=== PATIENT | male | born 1965 | race Caucasian/White ===

== ENCOUNTER 2017-10-31 12:21 | Day surgery (SDC) | payer MEDICARE, BC ==
[2017-10-30 09:33] LABS: BASOPHILS 0.2 % (0-2); EOSINOPHILS 0.8 % (0-7); HEMATOCRIT 41.6 % (42.0-54.0); HEMOGLOBIN 14.2 g/dL (13.5-17.5); IMMATURE GRANULOCYTES 0.2 % (0-5); LYMPHOCYTES 29.5 % (15-50); MCHC 34.1 g/dL (31.0-37.0); MCV 87.8 fL (80.0-100.0); MEAN PLATELET VOLUME 9.4 fL (7.4-10.4); NEUTROPHILS 62.3 % (40-80); RBC 4.74 10x6/uL (4.20-6.10); RDW 12.8 % (11.5-14.5); WBC 6.5 10x3/uL (4.8-10.8)
[2017-10-30 09:44] LABS: CALC OSMOLALITY 273 mosm/kg (275-300); CARBON DIOXIDE 23.5 mmol/L (21.0-32.0); CHLORIDE - SERUM 103 mmol/L (98-107); CREATININE - SERUM 1.1 mg/dL (0.6-1.3); GLUCOSE 79 mg/dL (74-106); POTASSIUM - SERUM 4.2 mmol/L (3.5-5.1); SODIUM 138 mmol/L (136-145); UREA NITROGEN 11 mg/dL (7-18); eGFR NON AFRICAN AMERICAN 75 mL/min (90-120)
[2017-10-30 09:50] LABS: PLATELET COUNT 248 10x3/uL (130-400)
[~2017-10-31] VITALS: Ht 180.3 cm; Wt 95.5 kg
--- NOTE | ~2017-10-31 | OP ---
PATIENT NAME: FROILAN FUNK MEDICAL RECORD: [id number] :69 LOCATION:[facility] ADMISSION DATE: SURGEON: BISHNU CARDONA MD DATE OF OPERATION: 10/31/2017 PREOPERATIVE DIAGNOSES: 1. Bilateral inguinal hernias. 2. Hypertension. 3. Arthritis. POSTOPERATIVE DIAGNOSES: 1. Bilateral inguinal hernias. 2. Hypertension. 3. Arthritis. PROCEDURE: Bilateral inguinal hernia repair with medium PHS mesh. SURGEON: Bishnu Cardona MD REPORT OF PROCEDURE: The patient's bilateral groins were prepped and draped in sterile fashion. An oblique incision was made above the left inguinal ligament. The electrocautery was used to dissect through the subcutaneous tissues to the external oblique fascia. This fascia was opened up to the external ring using electrocautery. The spermatic cord was elevated and a [place] was placed around it. We found the ilioinguinal nerve and this was high ligated. We were able to see the patient had a cord lipoma, which was acting like a hernia. This cord lipoma was freed up from the spermatic cord and high ligated. The remainder of the inguinal canal appeared to be normal. An opening was made in the inguinal floor and a medium PHS mesh was inserted. This was sutured down on all 4 sides using interrupted 0 Vicryls. The wound was then irrigated out with normal saline and the external oblique fascia was closed with running 2-0 Vicryls. Ender's was closed with interrupted 3-0 Vicryl and the skin was closed with running subcutaneous 5-0 Monocryl. The right side was approached. An oblique incision was made above the inguinal ligament. The electrocautery was used to dissect through the subcutaneous tissues to the external oblique fascia. This fascia was opened up to the external ring using electrocautery. The spermatic cord was elevated and a Jaylin was placed around it. Again, the patient had a large cord lipoma, which was acting like a hernia. This was freed up from the spermatic cord and high ligated. We found the ilioinguinal nerve, which had 3 branches and these were all high ligated. Inspection of the inguinal floor showed no other abnormalities. An opening was made in the inguinal floor and the preperitoneal space of Retzius was opened up. A medium PHS mesh was inserted and sutured down on all 4 sides with 0 Vicryls. The wound was irrigated out with normal saline. We closed the external oblique fascia with running 2-0 Vicryl, Ender's was closed with interrupted 3-0 Vicryls and the skin was closed with running subcutaneous 5-0 Monocryl. The wounds were then infused with a total of 10 mL of 0.25% Marcaine with epinephrine. COMPLICATIONS: None. CONDITION: Stable. ANESTHESIA: General endotracheal and local. BLOOD LOSS: Minimal. OPERATIVE REPORT [id number] FROILAN FUNK TRANSINT:[id number] Voice Confirmation ID: [id number] DOCUMENT ID: [id number] BISHNU CARDONA MD at 1413 CC: [id number] DICTATION DATE: 10/31/17929 NEONATAL SURGEON: 10/31/17 1038 [facility] 10/31/17 [id number] [place] [address]
[2017-10-31 06:52] VITALS: BP 108/64; Ht 180.3 cm; Wt 95.5 kg
[~2017-10-31 12:21] MED LIST: ASPIRIN325 MG PO; BUPROBAN150 MG PO; HYDROCODONE-APA1 TAB PO; KLONOPIN1 MG PO; PRILOSEC20 MG PO; TOPAMAX25 MG PO; TOPROL XL100 MG PO; TOPROL XL50 MG PO; VALIUM10 MG PO; ZESTORETIC 10/11 TAB PO
== END 2017-10-31 12:22 | disposition home or self-care (01) ==
LOC: D.OPS 12:21
PROVIDERS: Surgery
DX: K40.20 Bilateral inguinal hernia, without obstruction or gangrene, not specified as recurrent (principal); I10 Essential (primary) hypertension; M19.90 Unspecified osteoarthritis, unspecified site; Z01.812 Encounter for preprocedural laboratory examination

== ENCOUNTER 2018-12-04 11:00 | Outpatient (CLI) | payer MEDICARE ==
[~2018-12-04] VITALS: Ht 180.3 cm; Wt 100.0 kg
--- NOTE | ~2018-12-04 | HEMODYNAMI ---
PATIENT:FROILAN FUNK MEDICAL RECORD: [id number] : 69 LOCATION:[facility] ADMISSION DATE: 12/04/18 Generatedon:12/04/201813:18 Patient name: FROILAN FUNK Patient #: [id number] SSN: : 1965 Date of study: 12/04/2018 Page: Of Hemodynamic Procedure Report Patient Data Patient Demographics Procedure consent was obtained First Name: FROILAN Gender: Male Last Name: GOOD : 1965 Middle Initial: DILIP Age: 53 year(s) Patient #: [id number] Race: Additional ID: [id number] Contact details Address: [address] [place], [place] [address]ESTHELA SMITH State: [place] City: [place] Zip code: [address] Admission Admission Data Admission Date: 12/04/2018 Admission Time: 11:00 Procedure Procedure Types Cath Procedure Diagnostic Procedure LHC LHC w/Coronaries Procedure Description Procedure Date Procedure Date: 12/04/2018 Procedure Start Time: 13:03 Procedure End Time: 13:14 Procedure Staff Name Function Logan Espinoza MD Performing Physician Theresa Mclaughlin RT Monitor Cristofer Roland RT Scrub Mello White RN Nurse Procedure Data Cath Procedure Fluoroscopy Diagnostic fluoroscopy Total fluoroscopy Time: 2.3 time: 2.3 min min Diagnostic fluoroscopy Total fluoroscopy dose: 567 dose: 567 mGy mGy Contrast Material Contrast Material Type Amount (ml) Isovue 300 61 Entry Location Entry Primary Successful Side Size Upsize Upsize Entry Closure Quiñonez ccessful Closure Location (Fr) 1 (Fr) 2 (Fr) Remarks Device Remarks Radial Right 6 Fr Mechanical artery Short Compression Estimated blood loss: 5 ml Diagnostic catheters Device Type Used For End Catheter Placement DIAGNOSTIC Nando 110cm Multi-vessel 5Fr catheter ([id number]) Angiography DIAGNOSTIC AR MOD 5Fr Right Coronary Catheter ([id number]) Angiography Procedure Complications No complications Procedure Medications Medication Administration Route Dosage 0.9% NaCl I.V. 100 ml/hr Oxygen etCO2 Nasal cannula 2 l/min Heparin Flush Bag added to field 1 bags (1000units/500ml NS) Lidocaine 2% added to field 20 Radial Cocktail added to field 1 syringe (Verapomil 2mg/Nitro 400mcg/Heparin 1500units) Versed I.V. 2 mg Fentanyl I.V. 100 mcg Radial Cocktail I.A. 1 syringe (Verapomil 2mg/Nitro 400mcg/Heparin 1500units) Versed I.V. 2 mg Fentanyl I.V. 100 mcg Hemodynamics Rest Heart Rate: 54 (bpm) Pressure Samples Time Site Value (mmHg) Purpose Heart Use Rate(bpm) 13:06 LV 148/-7,13 Snapshot 81 13:07 AO 103/70(82) Pullback 78 13:07 LV 131/-3,13 Pullback 78 Gradients Valve Time Site 1 Site 2 Mean SEP/DFP Peak To Heart Use (mmHg) (sec/min) Peak Rate (mmHg) (bpm) Aortic 13:07 LV AO 12 14 28 78 131/-3,13 103/70(82) Calculations Valve P-P Mean Valve Index Valve Source Name Gradient Area Flow (cm2) Aortic 28 12 28 12 Snapshots Pre Cath Intra NCS Post Cath Vital Signs Time Heart Resp SPO2 etCO2 NIBP (mmHg) Rhythm Pain Sedation Rate (ipm) (%) (mmHg) Status Level (bpm) 12:50:31 56 14 98 0 140/85(110) NSR 0 (11) 10(A) , No pain 12:54:43 57 11 98 41.1 130/84(101) NSR 0 (11) 10(A) , No pain 12:58:53 53 14 100 38.1 124/85(96) NSR 0 (11) 10(A) , No pain 13:03:01 56 11 100 38.8 128/86(103) NSR 0 (11) 10(A) , No pain 13:08:10 73 12 96 0 114/72(94) NSR 0 (11) 10(A) , No pain 13:12:10 76 20 94 1.4 123/93(117) NSR 0 (11) 10(A) , No pain Medications Time Medication Route Dose Verified Delivered Reason Notes Effectiveness by by 12:56:27 0.9% NaCl I.V. 100 Mello Mello Per ml/hr Christopher White physician RN RN 12:56:36 Oxygen etCO2 2 l/min Mello Mello for low 02 Nasal Lorigan Lorigan sats cannula RN RN 12:56:48 Heparin Flush added 1 bags Mello Mello used for Bag to Lorigan Christopher procedure (1000units/500ml field RN RN NS) 12:57:01 Lidocaine 2% added 20ml Mello Mello for local to vial Lorigan Lorigan anesthetic field RN RN 12:57:16 Radial Cocktail added 1 Mello Mello used for (Verapomil to syringe Lorigan Lorigan procedure 2mg/Nitro field RN RN 400mcg/Heparin 1500units) 12:58:32 Versed I.V. 2 mg Mello Mello for sedation Christopher White RN RN 12:58:38 Fentanyl I.V. 100 mcg Mello Mello for sedation Christopher White RN RN 13:05:54 Radial Cocktail I.A. 1 Mello Logan for (Verapomil syringe Lorigan Espinoza MD vasodilation 2mg/Nitro RN 400mcg/Heparin 1500units) 13:07:26 Versed I.V. 2 mg Mello Mello for sedation Christopher White RN RN 13:07:32 Fentanyl I.V. 100 mcg Mello Mello for sedation Christopher White RN power transformer repair supervisor Log Time Note 12:38:55 Cristofer ORELLANA(R) sent for patient. Start room use. 12:38:57 Time tracking: Regular hours (M-F 7:00 - 5:00) 12:39:02 Plan of Care:Hemodynamics will remain stable., Cardiac rhythm will remain stable., Comfort level will be maintained., Respiratory function will remain adequate., Patient/ family verbilizes understanding of procedure., Procedure tolerated without complication., Recovers from procedure without complications.. 12:44:09 Patient received from Pre/Post Procedure Room to [facility] 2 Alert and oriented. Tansferred to table in Supine position. 12:44:10 Warm blankets applied, and nicole hugger turned on for patient comfort. 12:44:10 Correct patient and procedure confirmed by team. 12:44:12 Signed procedure consent form obtained from patient. 12:44:13 ECG and BP/O2 sat monitors applied to patient. 12:49:17 Vital chart was started 12:52:18 Baseline sample Acquired. 12:53:43 Rhythm: sinus rhythm , w/ ST elevation 12:54:30 H&P Date Dictated: 12/04/2018 Within 30 days and on chart., H&P Addendum completed by physician on day of procedure. (MUST COMPLETE FOR ALL OUTPATIENTS). 12:54:31 Pre-procedure instructions explained to patient. 12:54:32 Pre-op teaching completed and patient verbalized understanding. 12:54:33 Family in patients room. 12:54:34 Patient NPO since Midnight. 12:54:36 Is the patient allergic to Iodine/contrast media? No. 12:54:37 Was the patient premedicated? No 12:54:43 Is patient on blood thinner?No 12:54:45 Patient diabetic? No. 12:54:48 Previous problem with sedation/anesthesia? No ? 12:54:53 Snore? Yes 12:54:54 Sleep apnea? Yes 12:54:55 Deviated septum? No 12:54:55 Opens mouth fully? Yes 12:54:56 Sticks out tongue? Yes 12:54:58 Airway obstruction? No ? 12:55:07 Dentures? No ? 12:55:11 Pre procedure: right dorsailis pedis pulse 2+ Normal; easily identifiable; not easily obliterated 12:55:12 Pre procedure: left dorsailis pedis pulse 2+ Normal; easily identifiable; not easily obliterated 12:55:14 Patient pain scale 0/10 ?. 12:55:22 IV patent on arrival in left forearm with 0.9% NaCl at KVO. 12:55:24 Lab results completed and on chart. 12:55:28 Right Radial & Right Groin area was prepped with chlora-prep and draped in sterile fashion 12:55:29 Alarms reviewed by R. N. 12:55:29 Sharps counted by scrub and verified by R.N. 12:55:31 Physician arrived 12:55:31 --------ALL STOP TIME OUT------ 12:55:32 Final Timeout: patient, procedure, and site verified with staff and physician. All members of the team are in agreement. 12:55:34 Right Radial & Right Groin site verified by team. 12:55:37 Maximum allowable Isovue 300 dose 300ml. Physician notified. (300ml for normal creatinines. For patients with creatinine of 1.7 or higher multiply weight(kg) x 5 divided by creatinine.) 12:55:41 Fire Safety Assessment: A--An alcohol-based skin anteseptic being used preoperatively., C--Open oxygen or nitrous oxide is being used., D--An ESU, laser, or fiber-optic light is being used. 12:55:44 Physical assessment completed. ASA score P 2 - A patient with mild systemic disease as per Logan Espinoza MD. 12:55:48 Sedation plan: IV Moderate Sedation Medication:Versed, Fentanyl 12:55:51 Use device set Radial Dx or PCI 12:55:52 ACIST Syringe (66822) opened to sterile field. 12:55:53 Medline Cath Pack ([id number]) opened to sterile field. 12:55:53 Bag Decanter (2002S) opened to sterile field. 12:55:53 DIAGNOSTIC WIRE .035 260cm J wire (541276) opened to sterile field. 12:55:54 ACIST Hand Control (47469) opened to sterile field. 12:55:54 ACIST Manifold (67384) opened to sterile field. 12:55:55 Tegaderm 4 x 4 (1626W) opened to sterile field. 12:55:55 MBrace Wrist Support ([id number]) opened to sterile field. 12:55:56 SHEATH 6FR Slender (85-1060) opened to sterile field. 12:55:57 NEEDLE Cook 21G 4cm Radial (S29047) opened to sterile field. 12:56:27 0.9% NaCl 100 ml/hr I.V. was administered by Mello White RN; Per physician; 12:56:36 Oxygen 2 l/min etCO2 Nasal cannula was administered by Mello White RN; for low 02 sats; 12:56:48 Heparin Flush Bag (1000units/500ml NS) 1 bags added to field was administered by Mello White RN; used for procedure; 12:57:01 Lidocaine 2% 20ml vial added to field was administered by Mello White RN; for local anesthetic; 12:57:16 Radial Cocktail (Verapomil 2mg/Nitro 400mcg/Heparin 1500units) 1 syringe added to field was administered by Mello White RN; used for procedure; 12:58:32 Versed 2 mg I.V. was administered by Mello White RN; for sedation; 12:58:38 Fentanyl 100 mcg I.V. was administered by Mello White RN; for sedation; 13:02:58 Procedure started. 13:02:58 Full Disclosure recording started 13:03:45 Local anesthetic to right radial artery with Lidocaine 2% by Logan Espinoza MD.INITIAL ACCESS ONLY 13:04:44 A 6 Fr Short sheath was inserted into the Right Radial artery 13:05:54 Radial Cocktail (Verapomil 2mg/Nitro 400mcg/Heparin 1500units) 1 syringe I.A. was administered by Logan Espinoza MD; for vasodilation; 13:05:55 A DIAGNOSTIC Nando 110cm 5Fr catheter (281150) was advanced over the wire and used for Multi-vessel Angiography. 13:06:32 LV hemodynamics recorded. 13:06:33 LV gram done using SHAH 13:06:35 Injector settings: Ml/sec: 5, Volume: 15, 13:06:51 EF : 55 % 13:07:23 LCA angiography performed. 13:07:26 Versed 2 mg I.V. was administered by Mello White RN; for sedation; 13:07:26 Injector settings: Ml/sec: 3, Volume: 6, 13:07:32 Fentanyl 100 mcg I.V. was administered by Mello White RN; for sedation; 13:12:07 A DIAGNOSTIC AR MOD 5Fr Catheter ([id number]) was advanced over the wire and used for Right Coronary Angiography. 13:12:13 RCA angiography performed. 13:12:16 Injector settings: Ml/sec: 3, Volume: 6, 13:12:23 Catheter removed. 13:12:34 TR BAND Standard ([id number]) opened to sterile field. 13:12:44 Sheath removed intact; hemostasis achieved with Mechanical Compression to the Right Radial artery. 13:12:46 Procedure ended.(Physican Out) 13:13:36 Fluoroscopy time 02.30 minutes. 13:13:42 Fluoroscopy dose: 567 mGy 13:13:42 Flurop Dose total: 567 13:13:47 Contrast amount:Isovue 300 61ml. 13:13:49 Sharps counted by scrub and verified by R.N. 13:13:51 TR band inflated with 8cc of air. 13:13:53 Insertion/operative site no bleeding no hematoma. 13:13:58 Post-op/insertion site Right Radial artery dressed using a 4 x 4 and Tegaderm. 13:14:01 Post Procedure Pulses reassessed and unchanged 13:14:04 Post procedure rhythm: unchanged. 13:14:07 Estimated blood loss: 5 ml 13:14:08 Post procedure instruction explained to patient.Patient verbalizes understanding. 13:14:08 Patient needs reinforcement of post procedure teaching. 13:14:14 Procedure and supply charges have been captured, reviewed, submitted and are correct. 13:14:18 Procedure Complication : No complications 13:14:21 Vital chart was stopped 13:14:21 See physician's report for complete and final results. 13:14:48 Report given to Pre/Post Procedure Room. 13:14:51 Patient transfered to Pre/Post Procedure Room with Stretcher. 13:14:55 Procedure ended. 13:14:55 Full Disclosure recording stopped 13:15:06 End room use (Document Last) Device Usage Item Name Manufacture Quantity Catalog Hospital Part Current Minimal Lot# / Number Charge Number Stock Stock Serial# Code ACIST Acist 1 12579 412479 704398 710138 20 Syringe Medical (90435) Systems Inc Medline Medline 1 [id number] 227459 80961 190059 5 Cath Pack ([id number]) Bag Microtek 1 2001S 695785 13526 398504 5 Decanter Medical Inc. () DIAGNOSTIC St Elvis 1 690726 264014 382172 704373 30 WIRE .035 260cm J wire (069508) ACIST Hand Acist 1 98720 379239 155665 626379 5 Control Medical (80078) Systems Inc ACIST Acist 1 70107 395020 150573 531154 5 Manifold Medical (64876) Systems Inc Tegaderm 4 3M 1 1626W 977338 234350 003997 5 x 4 (1626W) MBrace Advanced 1 140-0250-00 026080 05287 097065 5 Wrist Vascular Support Dynamics ([id number]) SHEATH 6FR Terumo 1 [id number] 163558 309099 215324 5 Slender (80-1060) NEEDLE Nitro 1 T78011 098423 943023 486095 5 21G 4cm Radial (H90885) DIAGNOSTIC Terumo 1 40-8802 418817 231894 003275 5 Nando 110cm 5Fr catheter (912450) DIAGNOSTIC Cardinal 1 [id number] 440980 246970 472394 15 AR MOD 5Fr Health Catheter (704338F) TR BAND Terumo 1 [id number] 041392 793619 536351 40 Standard ([id number]) Signature Audit Foley Stage Time Signature Unsigned Intra-Procedure 12/04/2018 Theresa Mclaughlin 1:18:46 PM RT(R) Signatures Monitor : Theresa Mclaughlin RT Signature : Date : Time : [id number] [facility] [place] [address]
[2018-12-04] MEDS ORDERED: ZETIA10 MG PO (11:14)
[2018-12-04] MEDS ORDERED: BAYER CHEWABLE81 MG PO (11:14)
[2018-12-04] MEDS ORDERED: LISINOPRIL20 MG PO (11:15)
[2018-12-04] MEDS ORDERED: VALIUM10 MG PO (11:15)
[2018-12-04 11:28] VITALS: BP 121/76; Ht 180.3 cm; Wt 100.0 kg
[2018-12-04 11:34] LABS: BASOPHILS 0.2 % (0-2); EOSINOPHILS 1.9 % (0-7); HEMATOCRIT 42.1 % (42.0-54.0); HEMOGLOBIN 14.6 g/dL (13.5-17.5); IMMATURE GRANULOCYTES 0.2 % (0-5); LYMPHOCYTES 32.8 % (15-50); MCHC 34.7 g/dL (31.0-37.0); MCV 89.4 fL (80.0-100.0); MONOCYTES 7.3 % (2-11); NEUTROPHILS 57.6 % (40-80); PLATELET COUNT 264 10x3/uL (130-400); RBC 4.71 10x6/uL (4.20-6.10); RDW 12.4 % (11.5-14.5); WBC 6.3 10x3/uL (4.8-10.8)
[2018-12-04 11:45] LABS: CALC OSMOLALITY 280 mosm/kg (275-300); CALCIUM 8.9 mg/dL (8.5-10.1); CARBON DIOXIDE 30.1 mmol/L (21.0-32.0); CHLORIDE - SERUM 105 mmol/L (98-107); CREATININE - SERUM 1.1 mg/dL (0.6-1.3); GLUCOSE 91 mg/dL (74-106); POTASSIUM - SERUM 4.4 mmol/L (3.5-5.1); SODIUM 141 mmol/L (136-145); UREA NITROGEN 12 mg/dL (7-18); eGFR NON AFRICAN AMERICAN 75 mL/min (90-120)
[2018-12-04] MEDS ORDERED: ISOSORBIDE MONO30 M1 PO (13:32)
--- NOTE | 2018-12-04 14:07 | NUR ---
1345 SANDWICH AND PO FLUIDS SERVED. PT IS ALERT AND DENIES ANY C/O. FINGERS WARM AND CAP REFILL IS BRISK. WRIST IMMOBILIZER IN PLACE. VSS, RESP WITH EASE ON ROOM AIR.
--- NOTE | 2018-12-04 14:08 | NUR ---
PT HAS PRUDENCIO SANDWICH WITH NO C/O NAUSEA. VSS, DENIES ANY C/O CHEST PAIN. TR BAND IS CDI, FINGERS WARM AND CAP REFILL IS BRISK. FAMILY AT BEDSIDE. CALL LIGHT IN REACH.
--- NOTE | 2018-12-04 14:49 | NUR ---
TR BAND CDI TO RIGHT WRIST, NO BLEEDING OR HEMATOMA NOTED. FINGERS WARM AND CAP REFILL IS BRISK. PT DENIES ANY C/O. FAMILY AT BEDSIDE.
--- NOTE | 2018-12-04 15:06 | NUR ---
ATTEMPTED WEANING AIR FROM TR BAND WITH IMMEDIATE OOZING. AIR REINSTILLED AND OOZING CEASED. FINGERS WARM, CAP REFILL IS BRISK. DENIES ANY C/O. VSS.
--- NOTE | 2018-12-04 15:42 | NUR ---
1525 4 CC OF AIR WEANED FROM TR ABND WITH NO BLEEIDNG NOTED. FINGERS WARM AND CAP REFILL IS BRISK. 1540 3 CC OF AIR WEANED FROM TR BAND WITH NO BLEEDING NOTED. DC INSTRUCTIONS REVIEWED WITH PT AND FAMILY. RX FOR IMDUR CALLED TO PT'S PHARMACY PER PT REQUEST.
--- NOTE | 2018-12-04 16:10 | NUR ---
1550 ALL REMAINING AIR WEANED FROM TR BAND WITH NO BLEEDING NOTED. FINGERS WARM, PULSES PALPABLE. IV DC'D WITH CATH INTACT, PT DRESSING FOR DC WITH ASSIST. 1610 PT HAS DRESSED FOR DC TO HOME. 2X2 AND TEGADERM REMAIN CDI TO RIGHT WRIST. WRIST IMMOBILIZER IN PLACE. FINGERS WARM AND CAP REFIL IS BRISK. PULSES PALPABLE. PT ESCORTED TO PRIVATE AUTO VIA WC BY NURSE WITH GIRLFRIEND DRIVING HIM HOME.
== END 2018-12-04 16:10 | disposition home or self-care (01) ==
LOC: D.CATH 11:00
PROVIDERS: ATTEND Internal Medicine Cardiovascular Disease
DX: I25.110 Atherosclerotic heart disease of native coronary artery with unstable angina pectoris (principal)

== ENCOUNTER 2018-12-06 20:35 | Observation (INO) | payer MEDICARE, MEDICAID ==
[~2018-12-06] VITALS: Ht 180.3 cm; Wt 94.1 kg
[~2018-12-06 20:35] MED LIST changes: +BAYER CHEWABLE81 MG PO; +ISOSORBIDE MONO30 M1 PO; +LISINOPRIL20 MG PO; +ZETIA10 MG PO
[2018-12-06 21:00] VITALS: BP 157/104
[2018-12-06 21:48] LABS: BASOPHILS 0.2 % (0-2); EOSINOPHILS 2.4 % (0-7); HEMATOCRIT 40.2 % (42.0-54.0); HEMOGLOBIN 14.2 g/dL (13.5-17.5); IMMATURE GRANULOCYTES 0.2 % (0-5); LYMPHOCYTES 42.6 % (15-50); MCH 31.3 pg (26.0-34.0); MCHC 35.3 g/dL (31.0-37.0); MCV 88.5 fL (80.0-100.0); MEAN PLATELET VOLUME 10.1 fL (7.4-10.4); MONOCYTES 6.3 % (2-11); NEUTROPHILS 48.3 % (40-80); PLATELET COUNT 260 10x3/uL (130-400); RBC 4.54 10x6/uL (4.20-6.10); RDW 12.2 % (11.5-14.5); WBC 6.2 10x3/uL (4.8-10.8)
[2018-12-06 21:52] LABS: APPEARANCE CLEAR (CLEAR); BILIRUBIN NEGATIVE (NEGATIVE); COLOR STRAW (YELLOW); GLUCOSE NEGATIVE (NEGATIVE); KETONE NEGATIVE (NEGATIVE); NITRITE NEGATIVE (NEGATIVE); PROTEIN NEGATIVE (NEGATIVE); SPECIFIC GRAVITY 1.005 (1.005-1.020); UROBILINOGEN NORMAL (NORMAL)
--- NOTE | 2018-12-06 21:58 | NUR ---
THIS NURSE NOTED THAT DOCUMENTATION WAS DONE INCORRECTLY UNDER Reji JONES RN.
[2018-12-06 21:59] LABS: ALKALINE PHOSPHATASE 69 U/L (46-116); ALT (SGPT) 40 U/L (10-68); BILIRUBIN - TOTAL 0.14 mg/dL (0.2-1.3); CALC OSMOLALITY 276 mosm/kg (275-300); CALCIUM 8.9 mg/dL (8.5-10.1); CARBON DIOXIDE 28.8 mmol/L (21.0-32.0); CHLORIDE - SERUM 104 mmol/L (98-107); CREATININE - SERUM 1.1 mg/dL (0.6-1.3); GLUCOSE 89 mg/dL (74-106); POTASSIUM - SERUM 3.9 mmol/L (3.5-5.1); PROTEIN - SERUM 7.7 g/dL (6.4-8.2); SODIUM 140 mmol/L (136-145); UREA NITROGEN 10 mg/dL (7-18); eGFR NON AFRICAN AMERICAN 75 mL/min (90-120)
[2018-12-06 22:00] VITALS: BP 120/79
[2018-12-06 22:01] LABS: UDS - AMPHET NEGATIVE QUAL (NEGATIVE); UDS - BARB NEGATIVE QUAL (NEGATIVE); UDS - BENZO NEGATIVE QUAL (NEGATIVE); UDS - COCAINE NEGATIVE QUAL (NEGATIVE); UDS - OPIATE NEGATIVE QUAL (NEGATIVE); UDS - PCP NEGATIVE QUAL (NEGATIVE); UDS - THC NEGATIVE QUAL (NEGATIVE)
[2018-12-06 22:06] LABS: LIPASE 192 U/L (73-393); MAGNESIUM - SERUM 2.1 mg/dL (1.8-2.4)
[2018-12-06 22:11] LABS: PRO BNP 5 pg/mL (0-125); TROPONIN-I < 0.017 ng/mL (0.000-0.060)
[2018-12-06 23:00] VITALS: BP 130/72
[2018-12-07] VITALS (7 sets, daily range): BP systolic 112–152; BP diastolic 68–91; Ht 180.3 cm; Wt 94.1 kg
--- NOTE | 2018-12-07 00:26 | NUR ---
PT ARRIVED VIA W/C FROM ER WITH DX CP, SOB. PT DENIED ANY DISCOMFORT AT THAT TIME. IV TO L HAND SL. SR PER CM HR 79. VSS. ADMISSION ASSESSMENT, HISTORY AND HOME MED LIST COMPLETED. TYLENOL 500MG PO GIVEN FOR C/O MAYA. FAMILY AT BEDSIDE. SR UP X2, CALL LIGHT WITHIN REACH.
--- NOTE | 2018-12-07 01:10 | NUR ---
PT HAS C/O SOB WHILE LYING DOWN. BREATHING BETTER WHEN SITTING UP. SR 68 SR. O2 SAT 97% ON 2LNC. PT ALSO STATES HE CAN FEEL EVERY HEART BEAT IN HIS LIPS. FAMILY AT BEDSIDE.
--- NOTE | 2018-12-07 01:53 | NUR ---
PT RESTING WITH EYES CLOSED. RESP EVEN AND REGULAR. SR UP X2, CALL LIGHT WITHIN REACH. FAMILY AT BEDSIDE.
--- NOTE | 2018-12-07 04:06 | NUR ---
PT RESTING WITH EYES CLOSED. RESP EVEN AND REGULAR. SR UP X2, CALL LIGHT WITHIN REACH.
--- NOTE | 2018-12-07 06:35 | NUR ---
VSS. PT CONTINUES TO HAVE C/O MAYA 01/25. STATES HE HAS HAD WORSE HEADACHES IN THE PAST.NO NEURO DEFICITS NOTED. TYLENOL 500MG PO, MORPHINE 2MG IN ANS ZOFRAN 4MG IV GIVEN. FAMILY AT BEDSIDE.
--- NOTE | 2018-12-07 10:30 | NUR ---
TELEMETRY SR. AT BS. CALL LIGHT IN REACH. WILL CONT. PLAN OF CARE.
[2018-12-07 17:38] LABS: ERYTHROCYTE SEDIMENTATION RATE 3 mm/hr (0-20)
--- NOTE | 2018-12-07 20:00 | NUR ---
INITIAL ROUNDS AND ASSESSMENT COMPLETED. PT RESTING WITH C/O HEADACHE. DISCUSSED DIFFERENT AVAILABLE PAIN MEDS. MONITOR AND CPOC.
--- NOTE | 2018-12-07 22:00 | NUR ---
PT WAS GIVEN TYLENOL, AT HIS REQUEST, FOR HIS HEADACHE. HE ALSO ONLY TOOK A HALF DOSE OF IMDUR AT BEDTIME SAYING HE FEELS IT MAKES HIM HAVE A BAD HEADACHE AND THAT HE TALKED TO THE MD ABOUT IT. MONITOR AND CPOC.
--- NOTE | 2018-12-07 23:50 | NUR ---
PT C/O EXPLOSIVE HEADACHE. MEDICATED WITH REQUESTED MORHPINE IV AND ZOFRAN IV. PT STATES HE TOOK THAT LAST NIGHT AND IT MADE HIS HEADACHE GO AWAY.
[2018-12-08 01:34] VITALS: BP 112/73
[2018-12-08 05:55] VITALS: BP 100/57
--- NOTE | 2018-12-08 07:15 | NUR ---
ASSESSMENT DONE. DENIES NEEDS
[2018-12-08 08:07] VITALS: BP 111/78
[2018-12-08 09:38] LABS: CHOL - HDL RATIO 4.7 ratio (2.3-4.9); LDL-HDL RATIO 2.1 ratio (1.5-3.5)
[2018-12-08 11:25] VITALS: BP 106/70
[2018-12-08] MEDS ORDERED: ISOSORBIDE MONO30 M1 PO (11:25)
[2018-12-08] MEDS ORDERED: ALBUTEROL SULF8.5 GM INH (11:30)
--- NOTE | 2018-12-08 12:40 | NUR ---
DC GIVEN TO PT
--- NOTE | 2018-12-08 12:43 | NUR ---
I have reviewed this patient and I concur with the Shift Assessment completed by the Licensed Practical Nurse today this shift.
--- NOTE | 2018-12-08 12:56 | NUR ---
DC HOME PER PERSONAL CAR
== END 2018-12-08 12:56 | disposition home or self-care (01) ==
LOC: D.ER 20:35 → D.M2 22:11 → OBSVTIME 22:11 → D.M2 12-08 12:56
PROVIDERS: Family Medicine; Internal Medicine Nephrology; ADMIT Family Medicine; ATTEND Family Medicine
DX: I25.119 Atherosclerotic heart disease of native coronary artery with unspecified angina pectoris (principal); Z86.73 Personal history of transient ischemic attack (TIA), and cerebral infarction without residual deficits; K21.9 Gastro-esophageal reflux disease without esophagitis; I10 Essential (primary) hypertension; F32.9 Major depressive disorder, single episode, unspecified

== ENCOUNTER 2019-04-12 08:35 | Day surgery (SDC) | payer MEDICARE, MEDICAID ==
[~2019-04-12] VITALS: Ht 180.3 cm; Wt 99.5 kg
[~2019-04-12 08:35] MED LIST changes: +ALBUTEROL SULF8.5 GM INH
[2019-04-12 08:52] LABS: HEMOGLOBIN 14.2 g/dL (13.5-17.5); MCH 31.3 pg (26.0-34.0); MCHC 34.6 g/dL (31.0-37.0); MCV 90.3 fL (80.0-100.0); MEAN PLATELET VOLUME 9.6 fL (7.4-10.4); RBC 4.54 10x6/uL (4.20-6.10); RDW 12.7 % (11.5-14.5); WBC 5.4 10x3/uL (4.8-10.8)
[2019-04-12 09:23] VITALS: BP 137/85; Ht 180.3 cm; Wt 99.5 kg
--- NOTE | 2019-04-13 15:07 | OP ---
PATIENT NAME: FROILAN FUNK MEDICAL RECORD: [id number] :69 LOCATION:[facility] ADMISSION DATE: SURGEON: BRITTANY SPENCER DO DATE OF OPERATION: 04/12/2019 PROCEDURE: EGD with biopsies. INDICATIONS FOR PROCEDURE: Screening for colorectal cancer. SCOPE: Olympus video pediatric colonoscope. MEDICATIONS: Propofol 400 mg IV per anesthesia. WITHDRAWAL TIME: 11 minutes. ESTIMATED BLOOD LOSS: Minimal. COMPLICATIONS: None. FINDINGS: Informed consent was given. The patient was made comfortable with the above medication. After reaching an adequate level of sedation by slow IV push, the patient was placed on his left side. A digital rectal examination was performed and was normal. The endoscope was then advanced under direct visualization through the rectum to the cecum and terminal ileum. The endoscope was slowly withdrawn and the mucosa was carefully examined. The prep quality was good. There were 3 polyps visualized on today's examination. One was located in the sigmoid colon and 2 were located in the rectum. They were all benign-appearing and sessile and ranged in size from 3-5 mm in diameter. They were all removed using hot forceps. There were no other abnormalities during the examination. Retroflexion was performed in the rectum with normal appearing rectal wall. The endoscope was withdrawn from the patient. The patient tolerated the procedure well and there were no complications. IMPRESSION: Three polyps as described above, removed using hot forceps. PLAN AND RECOMMENDATIONS: 1. Discharge home when recovery parameters are met. 2. Follow up biopsy specimen results. 3. Continue current diet. 4. Continue current medications. 5. Recall colonoscopy in 3-5 years, pending results of pathology of polyps removed today. TRANSINT:[id number] Voice Confirmation ID: [id number] DOCUMENT ID: [id number] BRITTANY SPENCER DO at 1507 CC: [id number] DICTATION DATE: 04/12/19 1114 CUSTOMER SUPPORT MANAGER: 04/12/19 1121 [facility] 04/12/[address] [address]
== END 2019-04-12 12:08 | disposition home or self-care (01) ==
LOC: D.OPS 08:35
PROVIDERS: Anesthesiology; ATTEND Internal Medicine Gastroenterology
DX: Z12.11 Encounter for screening for malignant neoplasm of colon (principal); K63.5 Polyp of colon; Z01.812 Encounter for preprocedural laboratory examination

== ENCOUNTER 2019-04-26 07:14 | Day surgery (SDC) | payer MEDICARE, MEDICAID ==
[~2019-04-26] VITALS: Ht 180.3 cm; Wt 99.5 kg
[2019-04-26 07:27] LABS: HEMATOCRIT 42.5 % (42.0-54.0); HEMOGLOBIN 14.9 g/dL (13.5-17.5); MCH 31.6 pg (26.0-34.0); MCHC 35.1 g/dL (31.0-37.0); MEAN PLATELET VOLUME 9.5 fL (7.4-10.4); RBC 4.72 10x6/uL (4.20-6.10); RDW 12.4 % (11.5-14.5)
[2019-04-26 09:00] VITALS: BP 113/70; Ht 180.3 cm; Wt 99.5 kg
--- NOTE | 2019-04-29 07:40 | OP ---
PATIENT NAME: FROILAN FUNK MEDICAL RECORD: [id number] :69 LOCATION:[facility] ADMISSION DATE: SURGEON: BRITTANY SPENCER DO DATE OF OPERATION: 04/26/2019 PROCEDURE: EGD with biopsies. INDICATIONS FOR PROCEDURE: Abdominal pain, GERD. SCOPE: Olympus video gastroscope. MEDICATIONS: Propofol 250 mg IV per anesthesia. ESTIMATED BLOOD LOSS: Minimal. COMPLICATIONS: None. FINDINGS: Informed consent was given. The patient was made comfortable with the above medication. After reaching an adequate level of sedation by slow IV push, the patient was placed on his left side. Then, the scope was advanced under direct visualization through the mouth to the second portion of the duodenum with ease. The entire esophagus appeared normal. 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 Cold forceps, biopsies were taken at the squamocolumnar junction to submit for histopathology. The endoscope was advanced beyond the GE junction into the stomach and retroflexed to view the cardia and fundus, which appeared normal. Throughout the body of the stomach as well as the antrum and prepyloric regions, there was diffuse gastritis in a patchy distribution. There were no ulcers visualized. Random cold forceps biopsies were taken from the antrum and incisura to submit for histopathology and to rule out the presence of H. pylori. The endoscope was advanced beyond the pylorus into the duodenum, which appeared normal down to the second portion. The endoscope was withdrawn from the patient. The patient tolerated the procedure well and there were no complications. IMPRESSION: 1. 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 Biopsies pending. 2. Gastritis. PLAN AND RECOMMENDATIONS: 1. Discharge home when recovery parameters are met. 2. Follow up biopsy specimen results. 3. GERD diet and reflux precautions. 4. Continue current medications including omeprazole 20 mg daily. 5. Recall will be dependent on results of biopsies. If Chandler's is present, the patient will need a repeat EGD in 2 years. TRANSINT:[id number] Voice Confirmation ID: [id number] DOCUMENT ID: [id number] OPERATIVE REPORT [id number] FROILAN FUNK BRITTANY SPENCER DO at 0740 CC: [id number] DICTATION DATE: 04/26/19922 PERSONNEL WORKER: 04/26/1934 [facility] 04/26/19 [facility] [address] [id number]
== END 2019-04-26 10:10 | disposition home or self-care (01) ==
LOC: D.OPS 07:14
PROVIDERS: Anesthesiology; ATTEND Internal Medicine Gastroenterology
DX: K21.0 Gastro-esophageal reflux disease with esophagitis (principal); K29.50 Unspecified chronic gastritis without bleeding; Z01.812 Encounter for preprocedural laboratory examination